=== PATIENT | male | born 1995 | race Caucasian/White ===

== ENCOUNTER 2020-12-03 20:00 | Emergency (ER) | payer BC, SELFPAY ==
[2020-12-03 21:05] LABS: Bilirubin Neg (Negative); Blood, Urine Negative (Negative); Clarity Clear (Clear); Glucose, Urine (Dipstick) Normal (Negative); Ketone, Urine Negative (Negative); Leukocyte 100 (Negative); Nitrite Negative (Negative); Protein, Urine (Dipstick) Negative (Neg-Trace); Urobilinogen Normal mg/dL (Less than 2); pH, Urine 6.5 (5.0-9.0)
[2020-12-03 21:14] LABS: Bacteria/HPF 1+ HPF (None Seen); RBC/HPF 0-3 HPF (0-3); WBC/HPF 21-50 HPF (0-3)
[2020-12-03 21:17] LABS: Mucous/LPF Rare LPF (<2+)
== END 2020-12-03 21:53 | disposition home or self-care (01) ==
LOC: CSHERS 20:00
DX: N50.89 Other specified disorders of the male genital organs (principal); R82.71 Bacteriuria; F17.210 Nicotine dependence, cigarettes, uncomplicated
CPT/HCPCS: 76870; 81003; 81015; 93976

== ENCOUNTER 2022-03-14 01:25 | Emergency (ER) | payer OTHER, SELFPAY ==
[2022-03-14 02:50] LABS: Bilirubin Neg (Negative); Blood, Urine Negative (Negative); Clarity Clear (Clear); Glucose, Urine (Dipstick) Normal (Negative); Ketone, Urine Negative (Negative); Leukocyte Negative (Negative); Nitrite Negative (Negative); Protein, Urine (Dipstick) Negative (Neg-Trace); Urobilinogen Normal mg/dL (Less than 2)
[2022-03-14] MEDS ORDERED: Ketorolac Tromethamine 30 MG/ML VIAL ONE (03:00)
[2022-03-14] MEDS ORDERED: Morphine 4 MG/ML VIAL ONE (03:00)
== END 2022-03-14 04:20 | disposition home or self-care (01) ==
LOC: CSHERS 01:25
DX: N45.1 Epididymitis (principal); F17.210 Nicotine dependence, cigarettes, uncomplicated
CPT/HCPCS: 76870; 81003; 93976; J1885; J2270